=== PATIENT | male | born 1970 | race Hispanic/Latino ===

== ENCOUNTER → 2022-02-20 | Outpatient (CLI) | payer OTHER | END | disposition home or self-care (01) | LOC: OIH 08:25 | PROVIDERS: ATTEND Internal Medicine Cardiovascular Disease | DX: Z13.6 Encounter for screening for cardiovascular disorders (principal) | CPT/HCPCS: 75571 ==

== ENCOUNTER → 2023-10-31 | Outpatient (CLI) | payer OTHER | END | disposition home or self-care (01) | LOC: RAH 12:52 | PROVIDERS: ATTEND Internal Medicine Cardiovascular Disease | DX: Z13.6 Encounter for screening for cardiovascular disorders (principal) | CPT/HCPCS: 75571 ==

== ENCOUNTER → 2024-05-03 | Outpatient (CLI) | payer BC | END | disposition home or self-care (01) | LOC: SHCH 14:49 | PROVIDERS: ATTEND Internal Medicine Cardiovascular Disease | DX: I65.23 Occlusion and stenosis of bilateral carotid arteries (principal) | CPT/HCPCS: 93880 ==